=== PATIENT | female | born 1980 | race Caucasian/White ===

== ENCOUNTER → 2017-07-09 | Outpatient (CLI) | payer OTHER ==
[~2017-07-09] MED LIST: ACEBUTCAFT PO; CITA20 PO; CITALOPRAM PO; CODBUTACEC PO; ESTR2 PO; Esgic Tablet1 EACH PO; HYDACE5; HYDACE5 PO; ISODICACE PO; K-Dur20 MEQ PO; NAPR500 PO; PHENA200 PO; PREMARIN; PROM25 PO; PROP10 PO; SERT25 PO; SULTRIDS PO; TRAM50 PO; Ultram50 MG PO; ZOLP10 PO
== END | disposition home or self-care (01) ==
LOC: LAB EV 11:19
DX: J02.9 Acute pharyngitis, unspecified (principal)
CPT/HCPCS: 87070

== ENCOUNTER → 2017-08-02 | Outpatient (CLI) | payer OTHER ==
[~2017-08-02] MED LIST changes: -K-Dur20 MEQ PO; -NAPR500 PO; -PROP10 PO
== END ==
LOC: LAB SHORT 13:43 → LAB 13:43
DX: N76.0 Acute vaginitis (principal)
CPT/HCPCS: 87070; 87077; 87147; 87186; 87205

== ENCOUNTER → 2018-07-05 | Outpatient (CLI) | payer OTHER ==
[~2018-07-05] MED LIST changes: +K-Dur20 MEQ PO; +NAPR500 PO; +PROP10 PO
== END | disposition home or self-care (01) ==
LOC: LAB SHORT 18:09 → LAB EV 18:09
DX: N39.0 Urinary tract infection, site not specified (principal)
CPT/HCPCS: 87077; 87086; 87186

== ENCOUNTER → 2020-01-11 | Outpatient (CLI) | payer OTHER | LOC: LAB SHORT 10:30 → LAB EV 10:30 | DX: R30.9 Painful micturition, unspecified (principal) | CPT/HCPCS: 87086 ==

== ENCOUNTER → 2020-08-21 | Outpatient (CLI) | payer OTHER | LOC: LAB SHORT 18:31 | DX: J02.9 Acute pharyngitis, unspecified (principal) | CPT/HCPCS: 87081 ==

== ENCOUNTER → 2021-01-08 | Outpatient (CLI) | payer OTHER | END | disposition home or self-care (01) | LOC: LAB 08:45 → LAB SHORT 08:45 | DX: R30.9 Painful micturition, unspecified (principal) | CPT/HCPCS: 87077; 87086; 87147; 87186 ==

== ENCOUNTER → 2021-01-26 | Outpatient (CLI) | payer OTHER ==
[2021-01-26 09:24] LABS: Source, Urine Voided
[2021-01-26 12:59] LABS: Blood, Urine 2+ (Neg); Glucose Qualitative, Urine Neg (Neg); Ketones, Urine Neg (Neg); Leukocyte Esterase, Urine 2+ (Neg); Nitrite, Urine Pos (Neg); Protein, Urine 3+ (Neg); Specific Gravity, Urine 1.025 (1.003-1.022); Urobilinogen, Urine 4+ (Normal)
[2021-01-26 13:23] LABS: Bilirubin, Urine 3+ (Neg)
[2021-01-26 13:43] LABS: Appearance, Urine Hazy (Clear); Color, Urine Amber (P-Yellow); White Blood Cells, Urine 25-50 /hpf (0-5)
[2021-01-26 13:44] LABS: Squamous Epithelial Cells Mod /hpf (Few)
[2021-01-26 13:46] LABS: Bacteria Few /hpf
[2021-01-26 13:47] LABS: Amorphous Heavy (0-Heavy)
== END | disposition home or self-care (01) ==
LOC: LAB 09:21 → LAB SHORT 09:21
PROVIDERS: Nurse Practitioner Family
DX: N39.0 Urinary tract infection, site not specified (principal)
CPT/HCPCS: 81001; 87077; 87086; 87186

== ENCOUNTER → 2021-08-13 | Outpatient (CLI) | payer OTHER ==
[2021-08-13 10:34] LABS: BASOPHILS ABSOLUTE AUTO 0.03 K/mm3 (0.00-0.23); BASOPHILS PERCENT AUTO 1 % (0-2); EOSINOPHILS ABSOLUTE AUTO 0.03 K/mm3 (0.00-0.68); EOSINOPHILS PERCENT AUTO 1 % (0-6); Hemoglobin 13.8 g/dL (11.5-16.0); IMMATURE GRAN ABSOLUTE AUTO 0.01 K/mm3 (0.00-0.10); IMMATURE GRAN PERCENT AUTO 0 % (0-1); LYMPHOCYTES ABSOLUTE AUTO 1.85 K/mm3 (0.84-5.20); LYMPHOCYTES PERCENT AUTO 35 % (21-46); MONOCYTES ABSOLUTE AUTO 0.44 K/mm3 (0.16-1.47); MONOCYTES PERCENT AUTO 8 % (4-13); Mean Corpuscular HGB 30.8 pg (26.0-34.0); Mean Corpuscular HGB Conc 33.7 g/dL (31.5-36.5); Mean Corpuscular Volume 92 fL (80-100); Mean Platelet Volume 9.5 fL (9.1-12.4); NEUTROPHILS PERCENT AUTO 55 % (41-73); Platelet Count 293 K/mm3 (150-400); RDW Coefficient Variation 12.2 % (11.7-14.2); Red Blood Cell Count 4.48 M/mm3 (3.80-5.20); White Blood Cell Count 5.26 K/mm3 (4.00-11.30)
[2021-08-13 10:46] LABS: Alanine Aminotransfer (ALT/SGP 22 U/L (12-78); Albumin, Blood 4.1 g/dL (3.4-5.0); Albumin/Globulin Ratio 1.3 (0.8-1.8); Alk Phos 59 U/L (40-126); Anion Gap 11 mmol/L (6-16); Aspartate Aminotrans (AST/SGOT 14 U/L (12-37); Bilirubin, Total 0.5 mg/dL (0.1-1.0); Blood Urea Nitrogen 14 mg/dL (8-24); Bun/Creatinine Ratio 17.5 (12.0-20.0); CO2, Blood 27 mmol/L (21-32); Calcium, Blood 9.2 mg/dL (8.5-10.1); Chloride, Blood 104 mmol/L (98-108); Globulin, Blood 3.1 g/dL (2.2-4.0); Glomerular Filtration Rate >60 (60-); Glucose, Blood 94 mg/dL (70-99); Potassium, Blood 4.1 mmol/L (3.5-5.5); Sodium, Blood 142 mmol/L (136-145); Total Protein, Blood 7.2 g/dL (6.4-8.2)
== END | disposition home or self-care (01) ==
LOC: LAB SHORT 10:30
PROVIDERS: General Practice
DX: R10.9 Unspecified abdominal pain (principal)
CPT/HCPCS: 80053; 85025

== ENCOUNTER 2022-04-02 09:58 | Emergency (ER) | payer OTHER ==
[~2022-04-02] VITALS: Ht 160 cm; Wt 51.3 kg
[2022-04-02] MEDS ORDERED: HYDACE10B PO (11:12)
[2022-04-02] MEDS ORDERED: GABA100 PO (11:13)
== END 2022-04-02 11:40 | disposition home or self-care (01) ==
LOC: ER 09:58
DX: M25.512 Pain in left shoulder (principal); G89.29 Other chronic pain; Z88.8 Allergy status to other drugs, medicaments and biological substances; Z88.0 Allergy status to penicillin
CPT/HCPCS: J1885

== ENCOUNTER → 2023-01-31 | Outpatient (CLI) | payer OTHER ==
[~2023-01-31] MED LIST changes: +GABA100 PO; +HYDACE10B PO
[2023-02-03 10:11] LABS: CARBOXY-THC >529 (.)
== END ==
LOC: LAB SHORT 15:45 → LAB 15:45
PROVIDERS: Nurse Practitioner Family
DX: G89.4 Chronic pain syndrome (principal)
CPT/HCPCS: G0480

== ENCOUNTER → 2024-03-07 | Outpatient (CLI) | payer OTHER | LOC: LAB SHORT 08:50 → LAB 08:50 | DX: L02.92 Furuncle, unspecified (principal) | CPT/HCPCS: 87070; 87205 ==